=== PATIENT | male | born 1960 | race Asian ===

== ENCOUNTER 2021-11-29 09:47 | Day surgery (SDC) | payer OTHER ==
[~2021-11-29] VITALS: Ht 175.3 cm; Wt 72.1 kg
[2021-11-29] MEDS ORDERED: diphenhydrAMINE 50 MG/ML VIAL ONE (11:17)
[2021-11-29] MEDS ORDERED: fentaNYL citrate 0.05 MG/ML VIAL ONE (11:17)
[2021-11-29] MEDS ORDERED: MIDAZOLAM 5 MG/5 ML VIAL ONE (11:18)
[2021-11-29] MEDS ORDERED: fentaNYL citrate 0.05 MG/ML VIAL IVP ONE (14:05)
[2021-11-29] MEDS ORDERED: MIDAZOLAM 5 MG/5 ML VIAL IV ONE (14:05)
== END 2021-11-29 13:30 | disposition home or self-care (01) ==
LOC: MDS 09:47 → MMU 09:48 → MDS 13:30
PROVIDERS: ATTEND Internal Medicine Gastroenterology
DX: Z12.11 Encounter for screening for malignant neoplasm of colon (principal); D12.5 Benign neoplasm of sigmoid colon; D50.9 Iron deficiency anemia, unspecified; K29.50 Unspecified chronic gastritis without bleeding; B96.81 Helicobacter pylori [H. pylori] as the cause of diseases classified elsewhere; K44.9 Diaphragmatic hernia without obstruction or gangrene; I10 Essential (primary) hypertension; E11.9 Type 2 diabetes mellitus without complications; Z86.73 Personal history of transient ischemic attack (TIA), and cerebral infarction without residual deficits; Z79.01 Long term (current) use of anticoagulants; Z79.899 Other long term (current) drug therapy; Z20.822 Contact with and (suspected) exposure to COVID-19
CPT/HCPCS: 43239; 45385; 87426; 88305; 88312; 88313; 88342; J2250; J3010; J1200

== ENCOUNTER 2022-03-07 09:35 | Day surgery (SDC) | payer OTHER ==
[~2022-03-07] VITALS: Ht 172.7 cm; Wt 70.3 kg
[2022-03-07] MEDS ORDERED: MIDAZOLAM 5 MG/5 ML VIAL ONE (10:29)
[2022-03-07] MEDS ORDERED: fentaNYL citrate 0.05 MG/ML VIAL ONE (10:29)
[2022-03-07] MEDS ORDERED: diphenhydrAMINE 50 MG/ML VIAL ONE (10:29)
[2022-03-07] MEDS ORDERED: fentaNYL citrate 0.05 MG/ML VIAL IVP ONE (10:55)
[2022-03-07] MEDS ORDERED: MIDAZOLAM 2 MG/2 ML VIAL IVP ONE (10:55)
== END 2022-03-07 12:15 | disposition home or self-care (01) ==
LOC: MDS 09:35 → MMU 09:36 → MDS 12:15
PROVIDERS: ATTEND Internal Medicine Gastroenterology
DX: K31.A21 Gastric intestinal metaplasia with low grade dysplasia (principal); B96.81 Helicobacter pylori [H. pylori] as the cause of diseases classified elsewhere; I10 Essential (primary) hypertension; E11.9 Type 2 diabetes mellitus without complications; E78.5 Hyperlipidemia, unspecified; Z86.010 Personal history of colon polyps; Z86.73 Personal history of transient ischemic attack (TIA), and cerebral infarction without residual deficits; Z79.01 Long term (current) use of anticoagulants; Z79.899 Other long term (current) drug therapy; Z20.822 Contact with and (suspected) exposure to COVID-19
CPT/HCPCS: 43239; 87426; J2250; J3010; J1200